=== PATIENT | female | born 1985 | race African-American/Black ===

== ENCOUNTER 2019-10-11 23:20 | Emergency (ER) | payer MEDICAID ==
[~2019-10-11] VITALS: Ht 157.5 cm; Wt 61.2 kg
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
--- NOTE | 2019-10-11 23:25 | NUR ---
ED Nurse Note: provided sitter for patient's safety
[2019-10-11 23:26] VITALS: BP 136/82
--- NOTE | 2019-10-11 23:26 | NUR ---
Pt belongings in Locker #1.
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
[2019-10-12] VITALS (8 sets, daily range): BP systolic 122–132; BP diastolic 66–85
[2019-10-12] MEDS ORDERED: Lidocaine 1% Plain 30 ml INJ ONE
--- NOTE | 2019-10-12 | NUR ---
ED Nurse Note: Ambulated patient to restroom, pt able to walk with steady gait. Pt provided with warm blanket for comfort.
[2019-10-12 00:15] LABS: BASOPHILS % (AUTO) 1.3 % (0.0-2.0); EOSINOPHILS % (AUTO) 1.3 % (0.0-3.0); HEMATOCRIT 35.6 % (37.0-47.0); HEMOGLOBIN 12.5 G/DL (12.0-16.0); LYMPHOCYTES % (AUTO) 22.9 % (20.0-45.0); MEAN CORPUSCULAR VOLUME 87 FL (80-99); MONOCYTES % (AUTO) 10.2 % (1.0-10.0); NEUTROPHILS % (AUTO) 64.3 % (45.0-75.0); PLATELET COUNT 168 K/UL (150-450); RED BLOOD COUNT 4.11 M/UL (4.20-5.40); RED CELL DISTRIBUTION WIDTH 10.9 % (11.6-14.8); WHITE BLOOD COUNT 8.1 K/UL (4.8-10.8)
[2019-10-12 00:27] LABS: ANION GAP 8 mmol/L (5-15); BLOOD UREA NITROGEN 11 mg/dL (7-18); CALCIUM 8.7 MG/DL (8.5-10.1); CARBON DIOXIDE 24 MMOL/L (21-32); CHLORIDE 103 MMOL/L (98-107); CREATININE 0.9 MG/DL (0.55-1.30); POTASSIUM 3.9 MMOL/L (3.5-5.1); SODIUM 135 MMOL/L (136-145)
[2019-10-12 00:31] LABS: ALANINE AMINOTRANSFERASE 27 U/L (12-78); ALBUMIN 3.5 G/DL (3.4-5.0); ALBUMIN/GLOBULIN RATIO 0.9 (1.0-2.7); ALKALINE PHOSPHATASE 62 U/L (46-116); ASPARTATE AMINO TRANSFERASE 14 U/L (15-37); BILIRUBIN,TOTAL 0.2 MG/DL (0.2-1.0)
--- NOTE | 2019-10-12 01:00 | NUR ---
ED Nurse Note: ERMD at bedside for lac repair. Pt placed 2 sutures, pt tolerated well. No complications noted.
--- NOTE | 2019-10-12 01:05 | NUR ---
ED Nurse Note: Offered patient nourishment, pt refused at this time.
--- NOTE | 2019-10-12 01:30 | NUR ---
ED Nurse Note: Pt is sleeping at this time, no acute distress noted. Safety measures in place. RN bedside. Will continue to monitor.
--- NOTE | 2019-10-12 03:30 | NUR ---
ED Nurse Note: Pt resting in bed. Safety measures in place. RN at bedside. Will continue to monitor. No acute distress noted at this time.
--- NOTE | 2019-10-12 05:30 | NUR ---
ED Nurse Note: received report from Sarah HICKS. Pt is sleeping. vss, nad. will continue to monitor patient.
--- NOTE | 2019-10-12 06:58 | NUR ---
Zhen trevino in EDM - 10/12/19 at 0658 by [email or web address] ED Note: gave report to Fior PITTMAN
--- NOTE | 2019-10-12 06:59 | NUR ---
ED Nurse Note: gave report to Yuki HICKS.
--- NOTE | 2019-10-12 06:59 | NUR ---
ED Nurse Note: pt accompanied to restroom. NAD noted, pt ordered Kosher meal per request.
--- NOTE | 2019-10-12 07:30 | NUR ---
ED Nurse Note: Pt left to US with sitter
--- NOTE | 2019-10-12 07:59 | NUR ---
ED Nurse Note: pt returned from US
--- NOTE | 2019-10-12 09:00 | NUR ---
ED Nurse Note: pt eating breakfast resting in bed, nad noted. vss
--- NOTE | 2019-10-12 11:00 | NUR ---
ED Nurse Note: accompanied pt to restroom. pt able to ambulate with steady gait
--- NOTE | 2019-10-12 11:39 | Diagnostic Imaging Report ---
Indication: female. Pelvic pain Technique: Grayscale and duplex Doppler imaging of the pelvis performed utilizing a transabdominal scan and endovaginal scan. Comparison: None Findings: There is a single living intrauterine gestational age 6 weeks 6 days by crown-rump length. heart motion demonstrated. Yolk sac noted. There is dopplerable blood flow within both ovaries which appear normal. There is a simple cyst measuring 2.2 cm within the left ovary. The left ovary is 3.2 x 2.5 x 3.2 cm. The right ovary is 2.4 x 1.1 x 2.2 cm. IMPRESSION: Single viable intrauterine 6 weeks 6 days. Corpus luteum 2.2 cm left ovary.
--- NOTE | 2019-10-12 13:05 | NUR ---
ED Nurse Note: DR. SINHA AT THE BEDSIDE WITH THE IVORYAMRY NURSE, ASSESSING THE PT.
--- NOTE | 2019-10-12 13:10 | NUR ---
Zhen trevino in EDM - 10/12/19 at 1317 by KASIA ED Nurse Note: Dr. bergeron at bedside
--- NOTE | 2019-10-12 13:15 | NUR ---
ED Nurse Note: 5150 HOLD LIFTED
--- NOTE | 2019-10-12 13:18 | NUR ---
ED Nurse Note: *correction pt waiting for addiction social worker
--- NOTE | 2019-10-12 13:18 | NUR ---
ED Nurse Note: waiting for manager case
--- NOTE | 2019-10-12 13:44 | NUR ---
ED Nurse Note: Meal ordered for pt.
--- NOTE | 2019-10-12 14:00 | NUR ---
ED Nurse Note: pediatric social worker at bedside
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
[2019-10-12] MEDS ORDERED: CEPHALEXIN500 MG ORAL (14:28)
--- NOTE | 2019-10-12 14:37 | NUR ---
ER DISCHARGE NOTE: Patient is cleared to be discharged per ERMD, pt is aox4, on room air, with stable vital signs. pt was given dc and prescription instructions, pt was able to verbalize understanding, pt id band removed. pt is able to ambulate with steady gait. pt took all belongings. spouse at bedside with social services and cleared to take home.
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
== END 2019-10-12 14:35 | disposition home or self-care (01) ==
LOC: EDBD 23:20 → EMR 23:39
DX: O26.891 Other specified pregnancy related conditions, first trimester (principal); S61.412A Laceration without foreign body of left hand, initial encounter; W26.0XXA Contact with knife, initial encounter; Y92.009 Unspecified place in unspecified non-institutional (private) residence as the place of occurrence of the external cause; Z88.2 Allergy status to sulfonamides
CPT/HCPCS: 12001; 36415; 76801; 76830; 80053; 80307; 81025; 84702; 85025; G0480; G0481; J2001; Z7502; 99285